=== PATIENT | male | born 1965 | race Caucasian/White ===

== ENCOUNTER 2017-01-06 16:00 | Emergency (ER) | payer MEDICAID ==
[~2017-01-06] VITALS: Ht 167.6 cm; Wt 65.8 kg
[2017-01-06 16:14] VITALS: BP 143/81
--- NOTE | 2017-01-06 16:18 | NUR ---
PT TAKEN TO BED 5
--- NOTE | 2017-01-06 16:20 | NUR ---
51/M BIB SELF C/O L HEST PAIN & HEADACHE X 1 DAY.PT DENIES N/V/D; SKIN IS PINK/WARM/DRY; AAOX4 WITH EVEN AND STEADY GAIT; LUNGS CLEAR BL; HR EVEN AND REGULAR; PT DENIES ANY FEVER, CP, SOB, OR COUGH AT THIS TIME; PATIENT STATES PAIN OF 5/10 AT THIS TIME; VSS; PATIENT POSITIONED FOR COMFORT; HOB ELEVATED; BEDRAILS UP X2; BED DOWN. ER MD MADE AWARE OF PT STATUS.
[2017-01-06 17:32] VITALS: BP 124/85
== END 2017-01-06 17:32 | disposition home or self-care (01) ==
LOC: MED 16:00
DX: F41.9 Anxiety disorder, unspecified (principal); R07.89 Other chest pain; K21.9 Gastro-esophageal reflux disease without esophagitis

== ENCOUNTER 2018-06-25 14:36 | Emergency (ER) | payer MEDICAID ==
[~2018-06-25] VITALS: Ht 165.1 cm; Wt 81.6 kg
[2018-06-25 15:02] VITALS: BP 129/97
--- NOTE | 2018-06-25 15:16 | NUR ---
PT AMBULATES TO BED 3 Addendum: 06/25/18 at 1517 by [email or web address] REPORT GIVEN TO NASEEM DALEY.
--- NOTE | 2018-06-25 15:17 | NUR ---
52 YO M BIB SELF W/ C/O ITCHING , RASH ON BILATERAL LOWER LEGS X 1 MONTH . PT STATED " RASHES COME & GO X 1 MONTH". WENT TO [facility] 05/29/18 ; GOT BANOPHEN & TRIMMCINOLONE ACETONIDE CREAM 0.1%. REPORTS THAT THE MEDS RELIEVED THE ITCHING FOR ABOUT A DAY. PT REPORTS THAT HE RECENTLY RECEIVED SOME CARPETS FROM A FRIEND. NO DRAINAGE/EXUDATE NOTED. THE RASH IS LOCALIZED TO THE LOWER PORTIONG OF THE LEGS, JUST ABOVE THE ANKLE. AAOX4. GCS 15, CMS INTACT, RR EVEN AND UNLABORED, LUNGS CLEAR. ABD SOFT, NON-TENDER. ER MD NOTIFIED. PT NEEDS MET, SAFETY PRECAUTIONS IN PLACE. WILL CONTINUE TO MONITOR.
[2018-06-25 15:52] VITALS: BP 129/97
== END 2018-06-25 15:53 | disposition home or self-care (01) ==
LOC: MED 14:36
DX: S80.862A Insect bite (nonvenomous), left lower leg, initial encounter (principal); K21.9 Gastro-esophageal reflux disease without esophagitis; W57.XXXA Bitten or stung by nonvenomous insect and other nonvenomous arthropods, initial encounter; Y93.89 Activity, other specified; Y92.89 Other specified places as the place of occurrence of the external cause; Y99.8 Other external cause status
CPT/HCPCS: 99283

== ENCOUNTER 2019-06-23 18:28 | Emergency (ER) | payer MEDICAID ==
[~2019-06-23] VITALS: Ht 167.6 cm; Wt 82.6 kg
[2019-06-23 18:30] VITALS: BP 110/97
--- NOTE | 2019-06-23 18:41 | NUR ---
PT AMB TO BED 7
--- NOTE | 2019-06-23 19:05 | NUR ---
PT CAME TO ER C/O HEARTBURN FOR THE LAST 3 WEEKS. PT TAKING OMEPRAZOLE FOR THE LAST 2 YEARS AND IS CONCERNED THAT THE MEDICATION IS NOT WORKING ANYMORE. PER PT HE HAS NOT BEEN EATING THE BEST DIET AND HE HAS BEEN DRINKING 3 BEERS A NIGHT OFF AND ON THE LAST 3 WEEKS. PT HAS ALSO BEEN DRINKING KEVITA DRINKS. PT DOES EXPRESS HE FEELS BLOATED AND OCCASIONALY FEELS LIKE HE HAS CHILLS. AFEBRILE. PT DENIES ANY PAIN AT THIS TIME. PAIN LEVEL 0/10. DENIES N/V/D. NKA. NO MED HX. SAFETY MEASURES IN PLACE. WAITING FOR ERMD TO EVALUATE PT.
--- NOTE | 2019-06-23 19:05 | NUR ---
Note undone in EDM - 06/23/19 at 1919 by [email or web address] PT CAME TO ER C/O HEARTBURN FOR THE LAST 3 WEEKS. PT TAKING OMEPRAZOLE FOR THE LAST 2 YEARS AND IS CONCERNED THAT THE MEDICATION IS NOT WORKING ANYMORE. PER PT HE HAS NOT BEEN EATING THE BEST DIET AND HE HAS BEEN DRINKING 3 BEERS A NIGHT OFF AND ON THE LAST 3 WEEKS. PT HAS ALSO BEEN DRINKING KEVITA DRINKS. PT DENIES ANY PAIN AT THIS TIME. PAIN LEVEL 0/10. DENIES N/V/D. NKA. NO MED HX. SAFETY MEASURES IN PLACE. WAITING FOR ERMD TO EVALUATE PT.
[2019-06-23] MEDS ORDERED: DICYCLOMINE HCL LIQUID 10 MG/5 ML UDC PO ONE (20:20)
[2019-06-23] MEDS ORDERED: NACL 0.9% 1,000 ML IV ONE (20:20)
[2019-06-23] MEDS ORDERED: ALUMINUM HYD/MAG/SIMETHICONE 30 ML UDC PO ONE (20:20)
[2019-06-23] MEDS ORDERED: LIDOCAINE VISCOUS 2% 20 ML UDC PO ONE (20:20)
--- NOTE | 2019-06-23 20:26 | NUR ---
X RAY AT BEDSIDE
[2019-06-23 20:42] LABS: BASOPHILS % (AUTO) 0.7 % (0.0-2.0); EOSINOPHILS % (AUTO) 0.8 % (0.0-4.0); HEMATOCRIT 44.6 % (36-52); HEMOGLOBIN 15.2 g/dL (12.0-18.0); LYMPHOCYTES # (AUTO) 1.4 K/uL (2.0-11.5); LYMPHOCYTES % (AUTO) 29.2 % (20.5-51.1); MEAN CORPUSCULAR HEMOGLOBIN 32 pg (27-31); MEAN CORPUSCULAR HGB CONC 34 g/dL (33-37); MEAN CORPUSCULAR VOLUME 93.2 fL (80-94); MONOCYTES # (AUTO) 0.3 K/uL (0.8-1.0); MONOCYTES % (AUTO) 6.4 % (1.7-9.3); NEUTROPHILS % (AUTO) 62.9 % (42.2-75.2); PLATELET COUNT (AUTO) 214 K/uL (140-450); RED BLOOD CELL COUNT(AUTO) 4.78 MIL/uL (4.20-6.10); RED CELL DISTRIBUTION WIDTH 12.9 % (11.6-13.7); WHITE BLOOD COUNT (AUTO) 4.7 K/uL (4.8-10.8)
--- NOTE | 2019-06-23 21:09 | NUR ---
PER PT HE SAYS HE FEELS FINE. PAIN LEVEL 0/10. WILL CONTINUE TO MONITOR.
[2019-06-23 21:13] LABS: POTASSIUM 3.7 mmol/L (3.5-5.1)
[2019-06-23 21:14] LABS: ALBUMIN 4.1 g/dL (3.4-5.0); ANION GAP 12.8 (8-16); CARBON DIOXIDE 28.9 mmol/L (21-32); TOTAL BILIRUBIN 0.4 mg/dL (0.0-1.0)
--- NOTE | 2019-06-23 21:26 | NUR ---
PT AMBULATED TO RESTROOM
--- NOTE | 2019-06-23 22:20 | NUR ---
IV removed, catheter intact and site benign. Applied folded 4x4 gauze and tape to stop bleeding.
[2019-06-23 22:21] VITALS: BP 132/88
--- NOTE | 2019-06-23 22:21 | NUR ---
Patient discharged with v/s stable. Written and verbal after care instructions given and explained. Patient alert, oriented and verbalized understanding of instructions. Ambulatory with steady gait. All questions addressed prior to discharge. ID band removed. Patient advised to follow up with PMD. Rx of MAALOX, PROTONIX given. Patient educated on indication of medication including possible reaction and side effects. Opportunity to ask questions provided and answered.
== END 2019-06-23 22:22 | disposition home or self-care (01) ==
LOC: MED 18:28
DX: K29.70 Gastritis, unspecified, without bleeding (principal); K21.9 Gastro-esophageal reflux disease without esophagitis
CPT/HCPCS: 36415; 71045; 80053; 81002; 84484; 85025; 93005; 96360; 99284; J7030; Q0092

== ENCOUNTER 2020-07-18 02:50 | Emergency (ER) | payer MEDICAID ==
[2020-07-18 10:35] LABS: POTASSIUM 3.6 mmol/L (3.5-5.1)
[2020-07-18 10:36] LABS: ALBUMIN 4.2 g/dL (3.4-5.0); ANION GAP 13.5 (8-16); CARBON DIOXIDE 28.1 mmol/L (21-32); CREATININE 0.7 mg/dL (0.6-1.3); TOTAL BILIRUBIN 0.3 mg/dL (0.0-1.0)
== END 2020-07-18 05:37 | disposition home or self-care (01) ==
LOC: MED 02:50
DX: R53.83 Other fatigue (principal); F41.9 Anxiety disorder, unspecified; K21.9 Gastro-esophageal reflux disease without esophagitis; B96.81 Helicobacter pylori [H. pylori] as the cause of diseases classified elsewhere
CPT/HCPCS: 36415; 80053; 83690; 99283

== ENCOUNTER 2020-08-30 22:09 | Emergency (ER) | payer MEDICAID ==
[~2020-08-30] VITALS: Ht 167.6 cm; Wt 79.4 kg
[2020-08-30 22:21] VITALS: BP 147/80
[2020-08-30 23:26] LABS: BASOPHILS % (AUTO) 0.7 % (0.0-2.0); EOSINOPHILS # (AUTO) 0.1 K/uL (0-0.4); EOSINOPHILS % (AUTO) 0.9 % (0.0-4.0); HEMATOCRIT 42.9 % (36-52); HEMOGLOBIN 14.8 g/dL (12.0-18.0); LYMPHOCYTES # (AUTO) 1.8 K/uL (2.0-11.5); LYMPHOCYTES % (AUTO) 29.4 % (20.5-51.1); MEAN CORPUSCULAR HEMOGLOBIN 32 pg (27-31); MEAN CORPUSCULAR HGB CONC 35 g/dL (33-37); MEAN CORPUSCULAR VOLUME 91.4 fL (80-94); MONOCYTES # (AUTO) 0.6 K/uL (0.8-1.0); MONOCYTES % (AUTO) 8.9 % (1.7-9.3); NEUTROPHILS # (AUTO) 3.7 K/uL (1.8-7.7); NEUTROPHILS % (AUTO) 60.1 % (42.2-75.2); PLATELET COUNT (AUTO) 217 K/uL (140-450); RED CELL DISTRIBUTION WIDTH 12.5 % (11.6-13.7); WHITE BLOOD COUNT (AUTO) 6.2 K/uL (4.8-10.8)
[2020-08-30 23:40] LABS: ALBUMIN 3.9 g/dL (3.4-5.0); ANION GAP 12.8 (8-16); CARBON DIOXIDE 26.9 mmol/L (21-32); CREATININE 0.8 mg/dL (0.6-1.3); MAGNESIUM 2.2 mg/dL (1.8-2.4); POTASSIUM 3.7 mmol/L (3.5-5.1); TOTAL BILIRUBIN 0.4 mg/dL (0.0-1.0)
[2020-08-31] MEDS ORDERED: ALUMINUM HYD/MAG/SIMETHICONE 30 ML UDC PO ONE
[2020-08-31 00:12] VITALS: BP 129/84
== END 2020-08-31 00:12 | disposition home or self-care (01) ==
LOC: MED 22:09
DX: M62.838 Other muscle spasm (principal); F41.9 Anxiety disorder, unspecified; K21.9 Gastro-esophageal reflux disease without esophagitis
CPT/HCPCS: 36415; 80053; 82948; 83735; 85025; 99283

== ENCOUNTER 2020-09-29 13:45 | Emergency (ER) | payer MEDICAID ==
[~2020-09-29] VITALS: Ht 167.6 cm; Wt 81.6 kg
[2020-09-29 14:05] VITALS: BP 117/96
--- NOTE | 2020-09-29 14:12 | NUR ---
WAIT AT LOBBY. HANDED ON URINE CUP.
--- NOTE | 2020-09-29 14:56 | NUR ---
Dr. Hopkins is evaluating the patient at bedside.
--- NOTE | 2020-09-29 15:08 | NUR ---
55 Y/O MALE COMES FROM HOME PRESENTS TO ED C/O NAUSEA, INTERMITENT, SHARP EPIGASTRIC PAIN 4/10 X 3 WEEKS. PT STATES HE WAS TREATED FOR H PYLORI IN AND COMPLETED A 14 DAY TREATMENT. HE STATES 2 WEEKS AFTER TREATMENT OF H PYLORI HE BAGAN FEELING DIZZY, SHAKY AND INCREASED EPIGASTRIC PAIN. PT STATES " I AM UNABLE TO SLEEP, I FEEL CONFUSED, I THINK I HAVE AN ULCER". PT STATES SYMPTOMS ARE SHORTLY ALLEVIATED WHEN HE EATS, BUT IMMEDIATELY FEELS HUNGRY AGAIN. HE STATES HE HAS BEEN GAINING WEIHGT DUE TO INCREASED APPETITE. HE STATES HE IS SHEDULED FOR A COLONOSCOPY IN NOVEMBER, BUT WANTS TO KNOW IF HE HAS AN ULCER NOW. ABDOMEN SOFT, ROUND, TENDER, NON DISTENDED. BOWEL SOUNDS PRESENT ON ALL FOUR QUADRANTS. DENIES SOB, V/D, FEVER OR CHILLS. MED HX: SRAVAN RODRIGUEZDA
--- NOTE | 2020-09-29 15:08 | NUR ---
Note bernie in EDM - 09/29/20 at 1520 by MEDRLV AND COMPLETED A 14 DAY TREATMENT. HE STATES 2 WEEKS AFTER TREATMENT OF H PYLORI HE BAGAN FEELING DIZZY, SHAKY AND INCREASED EPIGASTRIC PAIN. PT STATES " I AM UNABLE TO SLEEP, I FEEL CONFUSED, I THINK I HAVE AN ULCER". PT STATES SYMPTOMS ARE SHORTLY ALLEVIATED WHEN HE EATS, BUT IMMEDIATELY FEELS HUNGRY AGAIN. HE STATES HE HAS BEEN GAINING WEIHGT DUE TO INCREASED APPETITE. HE STATES HE IS SHEDULED FOR A COLONOSCOPY IN NOVEMBER, BUT WANTS TO KNOW IF HE HAS AN ULCER NOW. ABDOMEN SOFT, ROUND, TENDER, NON DISTENDED. BOWEL SOUNDS PRESENT ON ALL FOUR QUADRANTS. DENIES SOB, V/D, FEVER OR CHILLS. MED HX: SRAVAN BROWNE
[2020-09-29] MEDS ORDERED: ONDANSETRON 4 MG ODT PO ONE (15:15)
[2020-09-29] MEDS ORDERED: FAMOTIDINE 20 MG TAB PO ONE (15:15)
[2020-09-29] MEDS ORDERED: ALUMINUM HYD/MAG/SIMETHICONE 30 ML UDC PO ONE (15:15)
[2020-09-29 15:32] LABS: BASOPHILS % (AUTO) 0.6 % (0.0-2.0); EOSINOPHILS % (AUTO) 0.6 % (0.0-4.0); HEMATOCRIT 44.7 % (36-52); HEMOGLOBIN 15.1 g/dL (12.0-18.0); LYMPHOCYTES # (AUTO) 1.4 K/uL (2.0-11.5); LYMPHOCYTES % (AUTO) 25.9 % (20.5-51.1); MEAN CORPUSCULAR HEMOGLOBIN 31 pg (27-31); MEAN CORPUSCULAR HGB CONC 34 g/dL (33-37); MONOCYTES # (AUTO) 0.4 K/uL (0.8-1.0); MONOCYTES % (AUTO) 8.5 % (1.7-9.3); NEUTROPHILS # (AUTO) 3.4 K/uL (1.8-7.7); NEUTROPHILS % (AUTO) 64.4 % (42.2-75.2); PLATELET COUNT (AUTO) 252 K/uL (140-450); RED BLOOD CELL COUNT(AUTO) 4.91 MIL/uL (4.20-6.10); RED CELL DISTRIBUTION WIDTH 12.6 % (11.6-13.7); WHITE BLOOD COUNT (AUTO) 5.2 K/uL (4.8-10.8)
--- NOTE | 2020-09-29 15:39 | NUR ---
PROVIDED PT WITH SANDWICH
[2020-09-29 15:42] LABS: ANION GAP 12.6 (8-16); CARBON DIOXIDE 28.5 mmol/L (21-32); CREATININE 0.9 mg/dL (0.6-1.3); POTASSIUM 4.1 mmol/L (3.5-5.1)
[2020-09-29 15:47] LABS: ALBUMIN 4.1 g/dL (3.4-5.0); BILIRUBIN,DIRECT 0.1 mg/dL (0.0-0.3); TOTAL BILIRUBIN 0.3 mg/dL (0.0-1.0)
[2020-09-29 17:06] VITALS: BP 117/96
--- NOTE | 2020-09-29 17:07 | NUR ---
Patient discharged with v/s stable. Written and verbal after care instructions given and explained. Patient verbalized understanding. Ambulatory with steady gait. All questions addressed prior to discharge. Advised to follow up with PMD.
== END 2020-09-29 17:07 | disposition home or self-care (01) ==
LOC: MED 13:45
DX: R42 Dizziness and giddiness (principal); R10.13 Epigastric pain; K21.9 Gastro-esophageal reflux disease without esophagitis
CPT/HCPCS: 36415; 80048; 80076; 81002; 83690; 84484; 85025; 93005; 99284